=== PATIENT | female | born 1935 | race Caucasian/White ===

== ENCOUNTER 2020-02-25 18:31 | Inpatient (IN) | payer OTHER ==
[~2020-02-25] VITALS: Ht 160 cm; Wt 72.6 kg
[2020-02-25] MEDS ORDERED: COZAAR50 MG (18:53)
[2020-02-25] MEDS ORDERED: RANEXA500 MG (18:53)
[2020-02-25] MEDS ORDERED: ZESTRIL2.5 MG (18:54)
[2020-02-25] MEDS ORDERED: BENZONATATE200 M1 (18:54)
[2020-02-25] MEDS ORDERED: NORVASC10 MG (18:55)
[2020-02-25] MEDS ORDERED: TOPROL XL25 M1 (18:56)
[2020-02-25] MEDS ORDERED: ISOSORBIDE MONO30 MG (18:56)
--- NOTE | 2020-02-25 18:57 | NUR ---
SE RECIBE PTE. FEMENINA EN AMBULANCIA [facility] POR DOLOR DE PECHO Y PRESIONES ARTERIALES ELEVADAS. ESTABA REALIZADOSE OPRACION DE NARIZ Y JAKE TITO. DR. RHEA HARRISON ESTABA ESPERANDEO PTE. SE UBICA EN CRITICO CAMA 3 SE CONECTA A MONITOR CARDIACO SE REALIZA EKG Y SE PRESENTA A DR. HARRISON PARA FIRMA Y ESCANEAR SE ANEXA A ESPEDIENTE.
--- NOTE | 2020-02-25 19:50 | NUR ---
SE RECIBE PTE ALERTA Y ORIENTADA X 3 ESFERAS EN AMBULANCIA QUIEN REFIERE DOLOR DE PECHO Y CAMBIOS EN EL EKG.SE UBICA EN CAMA CON BARANDAS ELEVADAS,AL MOMENTO PTE ES EVALUADA POR DR HARRISON QUIEN DA ORDENES Y SE EJECUTAN,SE CANALIZA BAJO MEDIDAS ASEPTICAS,SE EXTRAEN MUESTRAS DE IGUAL FORMA,SE ADMINISTRA DRIP DE TRIDIL Y LASIX.SE INSERTA PROCTOR BAJO MEDIDAS ASEPTICAS CON EGRESO DE 1000ML,ORINA AMARILLA SARITA Y SIN SEDIMENTACION.SE NOTIFICAN ABG A MR PING,SE REALIZA EKG AL MOMENTO DEL TRIAGE.SE NOTIFICA PLACA PENDIENTE.SE KIRK BAJO OBSERVACION POR CAMBIOS.
== END 2020-03-01 15:53 | disposition home or self-care (01) | DRG 305 ==
LOC: ER 18:31 → ICU-2 19:23 → ICU 02-27 01:44 → MEDI 02-27 22:23
PROVIDERS: ADMIT Internal Medicine; ATTEND Internal Medicine
PROC: 3E0F7GC Introduction of Other Therapeutic Substance into Respiratory Tract, Via Natural or Artificial Opening (ICD-10-PCS; 2020-02-25)
PROC: 4A12X4Z Monitoring of Cardiac Electrical Activity, External Approach (ICD-10-PCS; principal; 2020-02-27)
PROC: 3E0F7SF Introduction of Other Gas into Respiratory Tract, Via Natural or Artificial Opening (ICD-10-PCS; 2020-02-28)
PROC: B24BZZZ Ultrasonography of Heart with Aorta (ICD-10-PCS; 2020-02-28)
DX: I16.9 Hypertensive crisis, unspecified (principal); J45.31 Mild persistent asthma with (acute) exacerbation; I24.9 Acute ischemic heart disease, unspecified; I11.9 Hypertensive heart disease without heart failure; I73.9 Peripheral vascular disease, unspecified; I25.10 Atherosclerotic heart disease of native coronary artery without angina pectoris; E11.65 Type 2 diabetes mellitus with hyperglycemia; Z95.1 Presence of aortocoronary bypass graft; Z95.0 Presence of cardiac pacemaker